=== PATIENT | female | born 1940 | race Caucasian/White ===

== ENCOUNTER 2023-01-03 14:12 | Outpatient (REF) | payer OTHER, SELFPAY ==
[2023-01-03 15:39] LABS: Anion Gap 14 (12-20); Blood Urea Nitrogen 8 mg/dL (9-16); Calcium 9.4 mg/dL (8.4-10.2); Carbon Dioxide 26 mmol/L (22-29); Chloride 105 mmol/L (96-108); Estimated Glomerular Filt Rate > 60; Glucose Random 103 mg/dL (60-115); Potassium 3.7 mmol/L (3.3-5.1); Sodium 141 mmol/L (135-145)
[2023-01-03 16:09] LABS: Folate 8.2 ng/mL (> or = 4.0); T4 Thyroxine 7.6 ug/dL (4.5-12.0); Thyroid Stimulating Hormone 1.74 uIU/mL (0.32-4.0); Vitamin B12 480 pg/mL (200-900)
== END 2023-01-03 14:13 | disposition home or self-care (01) ==
LOC: HO.LAB 14:12
PROVIDERS: PCP Internal Medicine; Visit Provider Psychiatry & Neurology Neurology
DX: G30.9 Alzheimer's disease, unspecified (principal)
CPT/HCPCS: 36415; 80048; 82607; 82746; 84436; 84443

== ENCOUNTER 2023-03-29 07:33 | Outpatient (REF) | payer OTHER, SELFPAY ==
--- NOTE | ~2023-03-29 | CT_ITS ---
EXAMINATION: CT HEAD WITHOUT CONTRAST CLINICAL INFORMATION: Alzheimer's disease. COMPARISON: None. TECHNIQUE: Contiguous axial imaging was performed from the skullbase to vertex without intravenous administration of contrast. This CT examination was performed using dose optimization techniques as appropriate, variously including the following: *Automated exposure control *Adjustment of mA and/or kV according to patient size (this includes techniques or standardized protocols for targeted exams where dose is matched to indication/reason for exam; i.e. extremities or head) *Use of iterative reconstruction technique DLP: 627 mGy-cm. FINDINGS: There is no evidence of acute intracranial hemorrhage or territorial infarction. No abnormal mass effect or midline shift is seen. Powell to white matter differentiation is well preserved. No extra-axial fluid collections are identified. Moderate chronic white matter microangiopathy noted. Moderate to severe diffuse brain parenchymal volume loss noted with concordant ex vacuo prominence of the ventricles. The osseous structures and soft tissues are normal. The mastoid air cells and visualized portions of the paranasal sinuses are well aerated. CT/CT head/brain wo IV con IMPRESSION: No acute intracranial pathology. Moderate to severe diffuse brain parenchymal volume loss and moderate chronic white matter microangiopathy.
== END 2023-03-29 07:34 | disposition home or self-care (01) ==
LOC: HO.CT 07:33
PROVIDERS: PCP Internal Medicine; Visit Provider Psychiatry & Neurology Neurology
DX: G30.9 Alzheimer's disease, unspecified (principal)
CPT/HCPCS: 70450